=== PATIENT | male | born 1990 | race African-American/Black ===

== ENCOUNTER 2018-10-14 19:25 | Emergency (ER) | payer MEDICAID ==
[~2018-10-14] VITALS: Ht 188 cm; Wt 88.0 kg
[2018-10-14 22:25] VITALS: BP 126/69
== END 2018-10-14 21:23 | disposition home or self-care (01) ==
LOC: ER 19:25
DX: J06.9 Acute upper respiratory infection, unspecified (principal); J04.0 Acute laryngitis; Z98.890 Other specified postprocedural states
CPT/HCPCS: 99282; 99283

== ENCOUNTER 2019-01-20 04:52 | Emergency (ER) | payer MEDICAID ==
[~2019-01-20] VITALS: Ht 188 cm; Wt 89.0 kg
[2019-01-20] MEDS ORDERED: IBUPROFEN 800MG TABLET PO ONE (05:15)
[2019-01-20] MEDS ORDERED: FAMOTIDINE 20MG TABLET PO ONE (05:15)
[2019-01-20 05:17] VITALS: BP 141/83
== END 2019-01-20 06:29 | disposition home or self-care (01) ==
LOC: ER 04:52
DX: N45.1 Epididymitis (principal); F12.10 Cannabis abuse, uncomplicated; F17.200 Nicotine dependence, unspecified, uncomplicated
CPT/HCPCS: 99283

== ENCOUNTER 2020-03-31 03:48 | Emergency (ER) | payer MEDICAID | END 2020-03-31 04:18 | disposition left against medical advice (07) | LOC: ER 04:14 | DX: Z53.21 Procedure and treatment not carried out due to patient leaving prior to being seen by health care provider (principal) ==

== ENCOUNTER 2020-07-26 10:03 | Emergency (ER) | payer OTHER ==
[~2020-07-26] VITALS: Ht 182.9 cm; Wt 83.0 kg
[2020-07-26 10:05] VITALS: BP 131/81
[2020-07-26] MEDS ORDERED: KETOROLAC 60MG/2ML VIAL IM ONE (10:45)
[2020-07-26] MEDS ORDERED: AZITHROMYCIN 500 MG TABLET PO ONE (12:00)
[2020-07-26] MEDS ORDERED: CEFTRIAXONE SODIUM 250 MG/VIAL IM ONE (12:00)
[2020-07-26 13:06] LABS: CLARITY URINE CLEAR (CLEAR); COLOR URINE YELLOW (YELLOW); KETONES URINE NEGATIVE (NEGATIVE); LEUKOCYTE ESTERASE URINE 1+ (NEGATIVE); NITRITE URINE NEGATIVE (NEGATIVE); OCCULT BLOOD URINE NEGATIVE (NEGATIVE); PH URINE 6.5 (4.5-8.0); PROTEIN URINE TRACE (NEGATIVE); SPECIFIC GRAVITY URINE 1.028 (1.005-1.030)
[2020-07-26 13:17] LABS: *AMPHETAMINES SCREEN URINE PRESUMTIVE POSITIVE (NEGATIVE); *BARBITURATES SCREEN URINE NEGATIVE (NEGATIVE)
[2020-07-26 13:18] LABS: *BENZODIAZEPINES SCREEN URINE NEGATIVE (NEGATIVE); *COCAINE SCREEN URINE PRESUMTIVE POSITIVE (NEGATIVE); METHADONE URINE SCREEN NEGATIVE (NEGATIVE); OPIATES URINE SCREEN NEGATIVE (NEGATIVE)
[2020-07-26 13:19] LABS: CANNABINOID URINE SCREEN PRESUMTIVE POSITIVE (NEGATIVE); PHENCYCLIDINE URINE SCREEN NEGATIVE (NEGATIVE)
== END 2020-07-26 13:30 | disposition home or self-care (01) ==
LOC: ER 10:03
DX: N45.1 Epididymitis (principal); F19.10 Other psychoactive substance abuse, uncomplicated; F12.10 Cannabis abuse, uncomplicated; F17.200 Nicotine dependence, unspecified, uncomplicated; S01.81XA Laceration without foreign body of other part of head, initial encounter; Y04.0XXA Assault by unarmed brawl or fight, initial encounter; Y93.89 Activity, other specified; Y92.89 Other specified places as the place of occurrence of the external cause; Y99.8 Other external cause status
CPT/HCPCS: 76870; 80305; 81003; 87086; 93976; 96372; 99284; J0696; J1885